=== PATIENT | male | born 1985 | race African-American/Black ===

== ENCOUNTER 2017-12-11 05:21 | Emergency (ER) | payer OTHER ==
[2017-12-11 06:09] LABS: BASO # 0.1 10^3/uL (0.0-0.2); EOS # 0.1 10^3/uL (0.0-0.50); EOS % 1.8 % (0.0-3.0); HEMATOCRIT 48.8 % (42.0-52.0); HEMOGLOBIN 16.5 g/dl (13.5-17.5); IMMATURE GRANULOCYTE % 0.2 % (0-3.0); LYMPH # 2.6 10^3/uL (1.5-4.5); LYMPH % 52.3 % (24.0-44.0); MEAN CORPUSCULAR HEMOGLOBIN 31.1 pg (27.0-33.0); MEAN CORPUSCULAR HGB CONC 33.8 g/dl (32.0-36.5); MEAN CORPUSCULAR VOLUME 91.9 fl (80.0-96.0); MONO # 0.5 10^3/uL (0.0-0.8); MONO % 9.7 % (0.0-5.0); NEUTROPHILS # 1.7 10^3/uL (1.8-7.7); PLATELET COUNT, AUTOMATED 207 10^3/uL (150-450); RED BLOOD COUNT 5.31 10^6/uL (4.30-6.10); RED CELL DISTRIBUTION WIDTH 13.2 % (11.5-14.5); WHITE BLOOD COUNT 4.9 10^3/uL (4.0-10.0)
[2017-12-11 06:25] LABS: BLOOD UREA NITROGEN 11 MG/DL (7-18); CALCIUM LEVEL 8.5 MG/DL (8.5-10.1); CARBON DIOXIDE LEVEL 31 MEQ/L (21-32); CHLORIDE LEVEL 109 MEQ/L (98-107); GLUCOSE, FASTING 83 MG/DL (70-100); SODIUM LEVEL 145 MEQ/L (136-145); TROPONIN I < 0.02 NG/ML (< 0.10)
[2017-12-11 06:31] LABS: D-DIMER QUANT < 270.0 ng/ml (<500)
[2017-12-11 06:35] LABS: CK-MB VALUE MASS 4.1 NG/ML (<3.6); CPK CREATINE PHOSPHOKINASE 3213 U/L (39-308); MB/CK RELATIVE INDEX 0.12 (< OR =4)
[2017-12-11 06:48] LABS: ANION GAP 5 MEQ/L (8-16)
[2017-12-11] MEDS: NS 1,000 ML IV ×2 (06:50→08:24)
[2017-12-11] MEDS: ASPIRIN 81 MG CHEW TABLET PO (06:51)
[2017-12-11] MEDS: MORPHINE 4 MG/ML 1ML VIAL/SYRINGE (J2270) IV (06:53)
[2017-12-11 07:06] LABS: C REACTIVE PROTEIN QUANTITATIV < 0.30 MG/DL (0.00-0.30)
[2017-12-11 07:07] LABS: ERYTHROCYTE SEDIMENTATION RATE 1 mm/hr (0-15)
[2017-12-11] MEDS: KETOROLAC 30 MG/ML VIAL (J1885) IV (07:17)
== END 2017-12-11 09:29 | disposition home or self-care (01) ==
LOC: M ED 05:21
DX: M62.82 Rhabdomyolysis (principal); R07.9 Chest pain, unspecified; R06.02 Shortness of breath; Z87.891 Personal history of nicotine dependence
CPT/HCPCS: J2270

== ENCOUNTER 2017-12-23 20:52 | Emergency (ER) | payer OTHER | END 2017-12-23 22:17 | disposition home or self-care (01) | LOC: M ED 20:52 | DX: F43.9 Reaction to severe stress, unspecified (principal); Z79.1 Long term (current) use of non-steroidal anti-inflammatories (NSAID) | CPT/HCPCS: 99284 ==